=== PATIENT | male | born 1970 | race Caucasian/White ===

== ENCOUNTER 2017-03-02 09:26 | Observation (INO) | payer MEDICAID ==
[~2017-03-02] VITALS: Ht 170.2 cm; Wt 68.2 kg
--- NOTE | 2017-03-02 12:19 | NUR ---
PATIENT RECEIVED TO FLOOR FROM ER VIA STRETCHER. TRANSFERRED TO BED. TRANSFERRED SELF TO BED. ORIENTED TO ROOM. SIDE RAILS UP X2. BED IN LOW POSITION. CALL LIGHT IN REACH.
--- NOTE | 2017-03-02 12:30 | NUR ---
DILAUDID ESCROW AGENT SET ACCORDING TO ORDER. USE EXPLAINED. IV TO LEFT AC PATENT. NO REDNESS OR INFLAMMATION NOTED. ESCROW AGENT BUTTON IN REACH. BILATERAL LEGS ELEVATED ON PILLOWS. SIDE RAILS UP X2. BED IN LOW POSITION. CALL LIGHT IN REACH.
--- NOTE | 2017-03-02 13:02 | NUR ---
ICEPACK APPLIED UNDER BILAT HEELS. ANKLES ELEVATED ON 2 PILLOWS.
--- NOTE | 2017-03-02 13:08 | NUR ---
PATIENT ALERT IN BED WITH WITH LEGS PULLED UP TO SIDE AND NOT ELEVATED ON PILLOWS. RE-INSTRUCTED PATIENT OF IMPORTANCE OF KEEPING LEGS ELEVATED. ICE PACKS IN PLACED. SIDE RAILS UP X2. BED IN LOW POSITION. CALL LIGHT IN REACH.
[2017-03-02 13:53] VITALS: BP 120/65; Ht 170.2 cm; Wt 68.2 kg
[2017-03-02 14:42] LABS: HEMATOCRIT 42.8 % (42.0-54.0); HEMOGLOBIN 14.8 g/dL (13.5-17.5); MCH 32.1 pg (26.0-34.0); MCHC 34.6 g/dL (31.0-37.0); MCV 92.8 fL (80.0-100.0); MEAN PLATELET VOLUME 11.4 fL (7.4-10.4); PLATELET COUNT 238 10x3/uL (130-400); RBC 4.61 10x6/uL (4.20-6.10); RDW 13.7 % (11.5-14.5); WBC 21.6 10x3/uL (4.8-10.8)
[2017-03-02 14:57] LABS: ANION GAP 14.5 mmol/L (8-16); CALCIUM 8.8 mg/dL (8.5-10.1); CARBON DIOXIDE 23.6 mmol/L (21.0-32.0); CREATININE - SERUM 1.2 mg/dL (0.6-1.3); POTASSIUM - SERUM 4.1 mmol/L (3.5-5.1)
--- NOTE | 2017-03-02 15:09 | NUR ---
PATIENT ALERT IN BED WITH NOT ELEVATED ON PILLOWS. INSTRUCTED PATIENT ON KEEP LEGS ELEVATED. STATES UNDERSTANDING. TORADOL GIVEN PER PRN ORDER. SIDE RAILS UP X2. BED IN LOW POSITION. CALL LIGHT AND BUTTON IN REACH.
[2017-03-02 15:20] VITALS: BP 134/68
--- NOTE | 2017-03-02 15:22 | NUR ---
Patient Name: SHLOMO BAJWA Admission Status: ER Accout number: [id number] Admission Date: 03-02-2017 : 1970 Admission Diagnosis: Attending: KATALINA Current LOS: 1 Anticipated DC Date: 03-03-2017 Planned Disposition: Home [place]: [place] [employer] [place] Discharge Planning Comments: CM MET WITH PATIENT REGARDING D/C NEEDS AND PLANS. PATIENT STATES HE LIVES ALONE BUT WILL BE STAYING WITH A FRIEND (KIARA GARCIA) AT DISCHARGE. PATIENTS FRIEND IS BUILDING A RAMP AT HIS HOME TODAY FOR PATIENT. PATIENT IS INDEPENDENT WITH HIS CARE AND HAS NO DME AT HOME. PATIENTS PCP IS DR. SPRINGER AND PHARMACY IS [facility] ON [address] [facility]. PATIENTS EQUIPMENT FOR DISCHARGE HAS BEEN ORDERED THROUGH [facility] [employer]. CM WILL CONTINUE TO FOLLOW PATIENT WITH D/C NEEDS AND PLANS. PCP DR[facility] AT [facility]- [phone] KIARA GARCIA (FRIEND) [phone] [facility]. (THIS IS WHERE PATIENT WILL BE STAYING) Dairy Worker: Kayleigh Webb Is the patient Alert and Oriented? Yes 0 * How many steps to enter\exit or inside your home? RAMP 0 * PCP DR. SPRINGER 0 * Pharmacy [facility] ON [address] [facility] 0 * Preadmission Environment Home with Family 0 * ADLs Independent 0 * Equipment None 0 * List name and contact numbers for known caregivers / representatives who currently or will assist patient after discharge: KIARA GARCIA (FRIEND) [phone] * Community resources currently utilized None 0 * Additional services required to return to the preadmission environment? Yes 0 * Can the patient safely return to the preadmission environment? Yes 0 * Has this patient been hospitalized within the prior 30 days at any hospital? No 0 Grand Total: 0
[2017-03-02 15:49] LABS: EOSINOPHILS 2 % (0-7); LYMPHOCYTES 12 % (15-50); MONOCYTES 3 % (2-11); NEUTROPHILS 83 % (40-80); PLATELET ESTIMATE NORMAL
--- NOTE | 2017-03-02 16:34 | NUR ---
ALERT IN BED. LEGS ELEVATED ON PILLOW. FRESH ICE PACKS IN PLACE. DENIES NEEDS. SIDE RAILS UP X2. BED IN LOW POSITION. CALL LIGHT IN REACH.
--- NOTE | 2017-03-02 18:55 | NUR ---
PATIENT IN LOW MARCANO POSITION RESTING QUIETLY WITH EYES CLOSED. RESPIRATIONS EVEN AND UNLABORED. SIDE RAILS UP X2. BED IN LOW POSITION. CALL LIGHT IN REACH.
[2017-03-02 19:00] VITALS: BP 108/70
--- NOTE | 2017-03-02 20:26 | NUR ---
AWAKE ALERT.NO COMPLIANTS VOICED. IV INFUSING TO LEFT FOREARM WIHTOUT REDNESS OR EDEMA. SUPERVISOR LEAF SPRING REPAIR DILAUDID IN USE FOR PAIN CONTROL. COLEEN WRAPS INTACT TO BILATERAL LOWER EXTREMITIES. TOES WARM NO DEFICIETS NOTED. CL IN REACH
[2017-03-03] VITALS: BP 102/63
--- NOTE | 2017-03-03 01:20 | NUR ---
AROUSES EASILY TO STIMULI. NO DISTRESS NOTED. CL IN REACH.
[2017-03-03 04:00] VITALS: BP 107/62
--- NOTE | 2017-03-03 04:17 | NUR ---
EYES CLOSED RESPIRATIONS WITH EASE AND UNLABORED. SR UP X2 CALL LIGHT WITHIN REACH.
[2017-03-03 05:36] LABS: UDS - AMPHET POSITIVE QUAL (NEGATIVE); UDS - BARB NEGATIVE QUAL (NEGATIVE); UDS - BENZO NEGATIVE QUAL (NEGATIVE); UDS - COCAINE NEGATIVE QUAL (NEGATIVE); UDS - METH NEGATIVE QUAL (NEGATIVE); UDS - OPIATE POSITIVE QUAL (NEGATIVE); UDS - PCP NEGATIVE QUAL (NEGATIVE); UDS - THC NEGATIVE QUAL (NEGATIVE)
--- NOTE | 2017-03-03 05:51 | NUR ---
NO CHAANGE IN ASSESSMENT.CL IN REACH.
--- NOTE | 2017-03-03 07:39 | NUR ---
ROTARY PLANER SET UP OPERATOR SYRINGE FILLED AT THIS TIME D/T EXISTING SYRING BEING EMPTY. PT ALERT AND ORIENTED. PAIN 7/10 TO BILATERAL ANKLES. DRESSING WITH SPLINTS REMAIN TO BILATERAL ANKLES. ANKLES ELEVATED ON 3 PILLOWS. IV TO LEFT AC PATENT WITH NO S/S OF INFILTRATION PRESENT. ASSESSMENT PERFORMED PER FLOWSHEET. PROVIDED PT WITH SCRUB PANTS AT HIS REQUEST. BED ALARM ON AND IN LOWEST POSITION. SRX2 AND CALL LIGHT IN REACH. WILL CONTINUE WITH PLAN OF CARE.
[2017-03-03 07:55] VITALS: BP 99/54
[2017-03-03 11:17] VITALS: BP 120/62
[2017-03-03] MEDS ORDERED: DILAUDID2 MG PO (12:42)
--- NOTE | 2017-03-03 14:25 | NUR ---
D/C PAPERWORK REVIEWED AND IV TO LEFT AC D/C WITH CATH TIP INTACT. CALL LIGHT IN REACH, AWAITING TRANSFER HOME PER AMBULANCE SERVICE.
== END 2017-03-03 15:10 | disposition home or self-care (01) ==
LOC: D.ER 09:26 → D.MS 11:35 → OBSVTIME 11:35 → D.MS 03-03 15:10
PROVIDERS: ADMIT Orthopaedic Surgery
DX: S92.002A Unspecified fracture of left calcaneus, initial encounter for closed fracture (principal); S92.001A Unspecified fracture of right calcaneus, initial encounter for closed fracture; W17.89XA Other fall from one level to another, initial encounter; R52 Pain, unspecified; Z72.0 Tobacco use

== ENCOUNTER 2017-06-16 05:17 | Day surgery (SDC) | payer MEDICAID ==
[~2017-06-16] VITALS: Ht 170.2 cm; Wt 61.2 kg
--- NOTE | ~2017-06-16 | OP ---
PATIENT NAME: SHLOMO BAJWA MEDICAL RECORD: [id number] :[birth year] LOCATION:[facility] ADMISSION DATE: SURGEON: BORA CABELLO DPM DATE OF OPERATION: 06/16/2017 PREOPERATIVE DIAGNOSIS: Fracture, left calcaneus with a late union. POSTOPERATIVE DIAGNOSIS: Fracture, left calcaneus with a late union. PROCEDURE: ORIF, left calcaneus. ANESTHESIA: General with local infiltrate utilizing lidocaine and Marcaine plain, approximately 10 cc total around the posterior and lateral left calcaneus. HEMOSTASIS: Left thigh tourniquet at 350 mmHg. PREOPERATIVE DETAILS: The patient was taken to the OR and placed on the operating table in supine position and this was followed by induction of general anesthesia and infiltration of local anesthetic. The left extremity was then prepped and draped in the usual aseptic technique followed by exsanguination and inflation of tourniquet. Utilizing fluoroscopy and a guide wire that was placed from posterior aspect of the calcaneus anteriorly to the calcaneocuboid joint, a small stab incision was made over the posterior aspect of the calcaneus and entered the calcaneus posteriorly. The incision was approximately 1 cm-1.5 cm in length. Once the guidewires were placed appropriately and verified with the C-arm, overdrill was performed on the near cortex followed by a measuring needing a 70 mm x 7.0 headless screw. The screw was placed under fluoroscopy, noting excellent rigid internal fixation as well as compression, alignment and placement of the screw with fluoroscopy. The guidewire was then removed. The wound was flushed. The skin was closed with 4-0 Rapide in a simple interrupted technique followed by Dermabond and application of bandage. Tourniquet was deflated. POSTOPERATIVE DETAILS: The patient tolerated the procedure well and left the OR with vital signs stable and vascular status at preoperative levels. The patient was transported to recovery per anesthesia in stable condition. TRANSINT:[id number] Voice Confirmation ID: [id number] DOCUMENT ID: [id number] BORA CABELLO DPM CC: [id number] DICTATION DATE: 06/16/17 1112 CNC MACHINIST: 06/16/17 1201 [facility] 06/16/17 [place] [address]
[~2017-06-16 05:17] MED LIST: DILAUDID2 MG PO
[2017-06-16 08:31] VITALS: BP 128/82; Ht 170.2 cm; Wt 61.2 kg
--- NOTE | 2017-06-16 13:32 | NUR ---
DISCHARGE INSTRUCTIONS REVIEWED, VERBALIZED UNDERSTANDING. IV DC'D WITH TIP INTACT, NO REDNESS OR SWELLING NOTED TO SITE. SCRIPT TO PT. DC'D VIA WC WITH STAFF AND FATHER.
== END 2017-06-16 13:33 | disposition home or self-care (01) ==
LOC: D.OPS 05:17 → D.PAN 10:30 → D.OPS 13:33
DX: S92.002A Unspecified fracture of left calcaneus, initial encounter for closed fracture (principal); F17.200 Nicotine dependence, unspecified, uncomplicated; Z01.812 Encounter for preprocedural laboratory examination

== ENCOUNTER 2017-09-29 06:15 | Day surgery (SDC) | payer MEDICAID ==
[~2017-09-29] VITALS: Ht 170.2 cm; Wt 68.0 kg
[~2017-09-29 06:15] MED LIST changes: +KEFLEX500 MG PO; +PERCOCET 5-3251 TAB PO
[2017-09-29 08:04] VITALS: BP 120/80; Ht 170.2 cm; Wt 68.0 kg
--- NOTE | 2017-10-06 09:45 | OP ---
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 PROCEDURE: Subtalar fusion, left foot. ANESTHESIA: Preoperative popliteal block per the anesthesia department as well as intraoperative general anesthesia and infiltration of 8 cc of local anesthetic around the saphenous nerve as it courses over the medial left ankle. HEMOSTASIS: Left thigh tourniquet at 320 mmHg. PREOPERATIVE DETAILS: The patient was taken to the OR, placed on the operating table in supine position followed by induction of general anesthesia and infiltration of local anesthetic. The left extremity was then prepped and draped in the usual aseptic technique followed by exsanguination and inflation of tourniquet. A 15-blade was used to create an incision from the base of the fourth and fifth metatarsal proximal just under the distal fibula. The incision deepened down through subcutaneous tissue to the extensor brevis muscle belly which was split in two. Dissection was carried down to the sinus tarsi, which was evacuated. The subtalar joint was then delivered utilizing laminar spreaders, the joint was distracted and utilizing curette the cartilaginous surface was removed. It was noted that there was a significant deficit in the posterior facet of the subtalar joint, for which bone graft packing was necessary. Prior to packing the bone graft, subchondral drilling was performed on the posterior facet. The bone graft material was then packed in the deficit. The incision was made on the dorsal aspect of the anterior left ankle. Dissection was carried down bluntly down to the dorsal neck of the talus. A guidewire was placed in the neck of the talus plantarly through the posterior facet into the calcaneal tuberosity. This was holding the fusion site stable. Excellent alignment was noted. A drill was then used to drill over the guidewire down to the most posterior aspect of the posterior and plantar aspect of the calcaneal tuberosity and a size 70 mm partially threaded headless screw was deemed necessary to gap the deficit and provide compression. The hole was countersunk and the screw was placed under power initially and then with hand to finalize the compression. Excellent rigid internal fixation was noted. Fluoroscopy was used to show excellent placement and the fusion site was well stabilized. The wounds were flushed. The dorsal incision was reapproximated with 4-0 Rapide and the skin was closed in a subcuticular technique with 4-0 Rapide followed by Dermabond. The lateral wound of the deep tissue was reapproximated with 2-0 Vicryl, the subcutaneous tissue with 4-0 Rapide and the skin was closed with 4-0 Rapide in a subcuticular technique followed by Dermabond. Adaptic, 4 x 4 and Conform were used to dress the wound followed by application of a modified Ortiz compression dressing. Tourniquet was deflated. POSTOPERATIVE DETAILS: The patient tolerated the procedure well and left the OR with vital signs stable and vascular status at preoperative levels. The patient was transported to recovery per anesthesia in stable condition. OPERATIVE REPORT [id number] SHLOMO BAJWA TRANSINT:[id number] Voice Confirmation ID: [id number] DOCUMENT ID: [id number] BORA CABELLO DPM at 0945 CC: [id number] DICTATION DATE: 09/29/17 1339 CLAY MACHINE OPERATOR: 09/29/17 1449 [facility] 09/29/17 [place] [id number] [place] [address]
== END 2017-09-29 15:25 | disposition home or self-care (01) ==
LOC: D.OPS 06:15 → D.PAN 10:30 → D.OPS 10:30 → D.PAN 10:45 → D.OPS 10:45
DX: M19.172 Post-traumatic osteoarthritis, left ankle and foot (principal); Z01.812 Encounter for preprocedural laboratory examination